=== PATIENT | female | born 1950 | race Caucasian/White ===

== ENCOUNTER 2017-08-19 10:21 | Inpatient (IN) | payer MEDICARE ==
[2017-08-19] MEDS ORDERED: SODIUM CHLORIDE 0.9% 500 ML IV STA (10:52)
[2017-08-19] MEDS ORDERED: DILTIAZEM 5 MG/ML 5 ML VIAL IVP STA (10:52)
[2017-08-19] MEDS ORDERED: SODIUM CHLORIDE 0.9% 1,000 ML IV STA (10:52)
[2017-08-19] MEDS ORDERED: HEPARIN SODIUM,PORCINE 5,000 UNIT/ML 1 ML VIAL IV ONE (10:53)
[2017-08-19] MEDS ORDERED: NITROGLYCERIN SL TABS 0.4 MG TAB SUBLINGUAL PRN (10:53)
[2017-08-19] MEDS ORDERED: HEPARIN SODIUM,PORCINE 5,000 UNIT/ML 1 ML VIAL IV PRN (10:53)
[2017-08-19] MEDS ORDERED: DILTIAZEM 125 MG in SODIUM CHLORIDE 0.9% 100 ML IV ONE (11:00)
[2017-08-19] MEDS ORDERED: HEPARIN SOD,PORK IN 0.45% NACL 25,000 UNIT in 0.45% NACL 1 500ML.BAG IV SCH (11:00)
[2017-08-19 11:08] LABS: Basophils % (A) 0 %; Eosinophils # (A) 0.2 k/uL (0-0.7); Eosinophils % (A) 3 %; HCT 40.8 % (34.0-46.0); HGB 12.7 gm/dL (11.4-16.0); Lymphocytes # (A) 2.3 k/uL (1.0-4.8); Lymphocytes % (A) 34 %; MCHC 31.2 g/dL (31.0-37.0); Mean Platelet Volume 7.8; Monocytes # (A) 0.3 k/uL (0-1.0); Monocytes % (A) 5 %; Neutrophils # (A) 3.9 k/uL (1.3-7.7); Neutrophils % (A) 57 %; Platelet Count 179 k/uL (150-450); RBC 4.39 m/uL (3.80-5.40); RDW 13.5 % (11.5-15.5); WBC 6.8 k/uL (3.8-10.6)
[2017-08-19 11:18] LABS: D-Dimer 0.54 mg/L FEU (<0.60)
[2017-08-19 11:23] LABS: ALT 34 U/L (9-52); AST 33 U/L (14-36); Albumin 4.1 g/dL (3.5-5.0); Alkaline Phosphatase 89 U/L (38-126); Anion Gap 10 mmol/L; Blood Urea Nitrogen 15 mg/dL (7-17); Calcium 10.2 mg/dL (8.4-10.2); Carbon Dioxide 28 mmol/L (22-30); Chloride 104 mmol/L (98-107); Glucose 140 mg/dL (74-99); Magnesium 1.7 mg/dL (1.6-2.3); Phosphorus 3.1 mg/dL (2.5-4.5); Potassium 3.8 mmol/L (3.5-5.1); Sodium 142 mmol/L (137-145); Total Bilirubin 0.9 mg/dL (0.2-1.3)
[2017-08-19 11:26] LABS: INR 1.1 (<1.2); Prothrombin Time 10.9 sec (9.0-12.0)
[2017-08-19 11:31] LABS: Partial Thromboplastin Time 23.6 sec (22.0-30.0)
--- NOTE | 2017-08-19 11:34 | ED ---
General Adult HPI - General Chief complaint: Arrhythmia/Palpitations Stated complaint: Palpitations Time Seen by Provider: 08/19/17 10:34 Source: patient, RN notes reviewed, old records reviewed Mode of arrival: ambulatory Limitations: no limitations - History of Present Illness Initial comments: This is a 59-year-old female the ER for evaluation. Patient presents today for evaluation of elevated heart rate palpitations. Patient denies chest pain or shortness of breath. Patient had outpatient colonoscopy today she did recently go to bowel prep. Patient after the colonoscopy was found to be in A. fib with RVR by staff. Patient herself was admitting some palpitations at that time, patient's transfer to emergency room for evaluation and treatment - Related Data Home Medications Medication Instructions Recorded Confirmed Acetaminophen [Tylenol] 500 mg PO Q4-6H PRN 05/17/15 08/19/17 Hydrochlorothiazide [Hydrodiuril] 12.5 mg PO DAILY 05/17/15 08/19/17 Loratadine [Claritin] 10 mg PO DAILY PRN 05/17/15 08/19/17 Ascorbic Acid [Vitamin C] 500 mg PO DAILY 08/19/17 08/19/17 Aspirin EC [Ecotrin Low Dose] 81 mg PO DAILY 08/19/17 08/19/17 Cholecalciferol (Vitamin D3) 2,000 unit PO DAILY 08/19/17 08/19/17 [Vitamin D3] Levothyroxine Sodium [Synthroid] 75 mcg PO DAILY 08/19/17 08/19/17 Omeprazole [PriLOSEC] 40 mg PO DAILY 08/19/17 08/19/17 Simvastatin [Zocor] 40 mg PO HS 08/19/17 08/19/17 Allergies Allergy/AdvReac Type Severity Reaction Status Date / Time No Known Allergies Allergy Verified 08/19/17 10:33 Review of Systems ROS Statement: Those systems with pertinent positive or pertinent negative responses have been documented in the HPI. ROS Other: All systems not noted in ROS Statement are negative. Past Medical History Past Medical History: Hearing Disorder / Deafness, Hyperlipidemia, Hypertension , Thyroid Disorder Additional Past Medical History / Comment(s): deaf left ear History of Any Multi-Drug Resistant Organisms: None Reported Past Surgical History: Hysterectomy, Tubal Ligation Additional Past Surgical History / Comment(s): Acoustic Neuroma - removal. Past Psychological History: No Psychological Hx Reported Smoking Status: Never smoker Past Alcohol Use History: None Reported Past Drug Use History: Unable to Obtain General Exam Limitations: no limitations General appearance: alert, in no apparent distress, anxious Head exam: Present: atraumatic, normocephalic, normal inspection Eye exam: Present: normal appearance, PERRL, EOMI. Absent: scleral icterus, conjunctival injection, periorbital swelling ENT exam: Present: normal exam, mucous membranes moist Neck exam: Present: normal inspection. Absent: tenderness, meningismus, lymphadenopathy Respiratory exam: Present: normal lung sounds bilaterally. Absent: respiratory distress, wheezes, rales, rhonchi, stridor Cardiovascular Exam: Present: tachycardia, irregular rhythm, normal heart sounds. Absent: systolic murmur, diastolic murmur, rubs, gallop, clicks GI/Abdominal exam: Present: soft, normal bowel sounds. Absent: distended, tenderness, guarding, rebound, rigid Extremities exam: Present: normal inspection, full ROM, normal capillary refill. Absent: tenderness, pedal edema, joint swelling, calf tenderness Back exam: Present: normal inspection Neurological exam: Present: alert, oriented X3, CN II-XII intact Psychiatric exam: Present: normal affect, normal mood Skin exam: Present: warm, dry, intact, normal color. Absent: rash Course Vital Signs 08/19/17 08/19/17 10:22 11:38 Temperature 97.6 F Pulse Rate 150 H 60 Respiratory 18 16 Rate Blood Pressure 157/87 112/59 O2 Sat by Pulse 97 94 L Oximetry - Reevaluation(s) Reevaluation #1: 08/19/17 11:51 Patient has conversion after coughing fits in normal sinus rhythm EKG Findings - EKG Comments: EKG Findings:: EKG shows A. fib with RVR rate 118, QRS 80, QTC 490. Repeat. EKG shows sinus bradycardia rate of 54, NC 162, QRS 82, QTc 440 Medical Decision Making - Medical Decision Making 59 female the ER for evaluation of new onset A. fib with RVR, patient admitted for anticoagulation and rate control - Lab Data Result diagrams: 08/19/17 10:46 08/19/17 10:46 Lab Results 08/19/17 08/19/17 08/19/17 Range/Units 10:46 10:46 10:46 WBC 6.8 (3.8-10.6) k/uL RBC 4.39 (3.80-5.40) m/uL Hgb 12.7 (11.4-16.0) gm/dL Hct 40.8 (34.0-46.0) % MCV 93.0 (80.0-100.0) fL MCH 29.0 (25.0-35.0) pg MCHC 31.2 (31.0-37.0) g/dL RDW 13.5 (11.5-15.5) % Plt Count 179 (150-450) k/uL Neutrophils % 57 % Lymphocytes % 34 % Monocytes % 5 % Eosinophils % 3 % Basophils % 0 % Neutrophils # 3.9 (1.3-7.7) k/uL Lymphocytes # 2.3 (1.0-4.8) k/uL Monocytes # 0.3 (0-1.0) k/uL Eosinophils # 0.2 (0-0.7) k/uL Basophils # 0.0 (0-0.2) k/uL PT 10.9 (9.0-12.0) sec INR 1.1 (<1.2) APTT 23.6 (22.0-30.0) sec D-Dimer 0.54 (<0.60) mg/L FEU Sodium 142 (137-145) mmol/L Potassium 3.8 (3.5-5.1) mmol/L Chloride 104 (98-107) mmol/L Carbon Dioxide 28 (22-30) mmol/L Anion Gap 10 mmol/L BUN 15 (7-17) mg/dL Creatinine 0.83 (0.52-1.04) mg/dL Est GFR (MDRD) Af Amer >60 (>60 ml/min/1.73 sqM) Est GFR (MDRD) Non-Af >60 (>60 ml/min/1.73 sqM) Glucose 140 H (74-99) mg/dL Calcium 10.2 (8.4-10.2) mg/dL Phosphorus 3.1 (2.5-4.5) mg/dL Magnesium 1.7 (1.6-2.3) mg/dL Total Bilirubin 0.9 (0.2-1.3) mg/dL AST 33 (14-36) U/L ALT 34 (9-52) U/L Alkaline Phosphatase 89 (38-126) U/L Total Protein 7.0 (6.3-8.2) g/dL Albumin 4.1 (3.5-5.0) g/dL - Radiology Data Radiology results: image reviewed Disposition Clinical Impression: Atrial fibrillation, Atrial fibrillation with RVR Disposition: ADMITTED IP TO THIS HOSP Condition: Fair Referrals: Marlene Nevarez DO [Primary Care Provider] - 1-2 days
[2017-08-19 11:39] LABS: Creatine Kinase 151 U/L (30-135)
[2017-08-19 11:52] LABS: Creatine Kinase MB 1.9 ng/mL (0.0-2.4); Troponin I <0.012 ng/mL (0.000-0.034)
[2017-08-19] MEDS ORDERED: ACETAMINOPHEN TAB 500 MG TAB PO PRN (14:17)
[2017-08-19] MEDS ORDERED: LORATADINE 10 MG TAB PO PRN (14:17)
--- NOTE | 2017-08-19 14:23 | P.HPIM ---
History of Present Illness H&P Date: 08/19/17 Chief Complaint: Atrial fibrillation with rapid ventricular response This is a 67-year-old female, patient of [facility]. She has a known past medical history of hypertension, hyperlipidemia and hypothyroidism. Patient was at [facility] facility for a routine colonoscopy screening with Dr. Hancock today. After the procedure she went into atrial fibrillation with rapid ventricular response. Patient reports she was given some medicine over at [facility] and then was brought over to [facility]. In the emergency room she was started on IV Cardizem drip and IV heparin. She has converted to sinus rhythm. And metoprolol 25 mg twice a day was started by Dr. Nguyen. Cardiology has been consulted. Patient does report having some heart palpitations. She denies any chest pain, dizziness, nausea or vomiting, shortness of breath. She also denies any bowel movement changes urinary symptoms any fevers chills or sweats. She had taken the GoLYTELY prep yesterday and had tolerated that well with no problems. She's never had atrial fibrillation before. She is still having some loose stools likely from her GoLYTELY prep. Patient reports that her colonoscopy was reported normal to her. She's had a history of colon polyps in the past that were benign. Review of Systems Please refer to HPI otherwise unremarkable Past Medical History Past Medical History: Hearing Disorder / Deafness, Hyperlipidemia, Hypertension , Thyroid Disorder Additional Past Medical History / Comment(s): Deaf left ear, [place] R ear, hypothyroid, 2 ruptured discs/back pain with recent cortisone injections, hayfever, hiatal hernia. History of Any Multi-Drug Resistant Organisms: None Reported Past Surgical History: Hysterectomy, Tubal Ligation Additional Past Surgical History / Comment(s): Acoustic neuroma - removal, cataract removals with lens implants, 08/19/17 colonoscopy. Past Anesthesia/Blood Transfusion Reactions: No Reported Reaction Smoking Status: Never smoker - Past Family History Father Family Medical History: Diabetes Mellitus Mother Family Medical History: Diabetes Mellitus Additional Family Medical History / Comment(s): Mother is . She had heart problems. Medications and Allergies Home Medications Medication Instructions Recorded Confirmed Type Acetaminophen [Tylenol] 500 mg PO Q4-6H PRN 05/17/15 08/19/17 History Hydrochlorothiazide [Hydrodiuril] 12.5 mg PO DAILY 05/17/15 08/19/17 History Loratadine [Claritin] 10 mg PO DAILY PRN 05/17/15 08/19/17 History Ascorbic Acid [Vitamin C] 500 mg PO DAILY 08/19/17 08/19/17 History Aspirin EC [Ecotrin Low Dose] 81 mg PO DAILY 08/19/17 08/19/17 History Cholecalciferol (Vitamin D3) 2,000 unit PO DAILY 08/19/17 08/19/17 History [Vitamin D3] Levothyroxine Sodium [Synthroid] 75 mcg PO DAILY 08/19/17 08/19/17 History Omeprazole [PriLOSEC] 40 mg PO DAILY 08/19/17 08/19/17 History Simvastatin [Zocor] 40 mg PO HS 08/19/17 08/19/17 History Allergies Allergy/AdvReac Type Severity Reaction Status Date / Time No Known Allergies Allergy Verified 08/19/17 10:33 Physical Exam Vitals: Vital Signs Temp Pulse Pulse Resp BP BP Pulse Ox 08/19/17 12:54 60 16 08/19/17 12:27 97.0 F L 60 16 144/68 98 08/19/17 12:00 98.2 F 58 L 16 125/64 97 08/19/17 11:38 60 16 112/59 94 L 08/19/17 10:22 97.6 F 150 H 18 157/87 97 Intake and Output 08/18/17 08/19/17 08/19/17 22:59 06:59 14:59 Other: Weight 78.925 kg Patient Weight 08/20/17 06:59 Weight 78.925 kg Head normocephalic Neck supple Lungs clear to auscultation bilaterally no wheezing or crackles Heart regular rate and rhythm S1-S2, no rub or gallop Abdomen is soft nontender nondistended positive bowel sounds no hepatosplenomegaly Extremities no edema Neuro alert and orientated to 3 Results CBC & Chem 7: 08/19/17 10:46 08/19/17 10:46 Labs: Abnormal Lab Results - Last 24 Hours (Table) 08/19/17 08/19/17 Range/Units 10:46 10:46 Glucose 140 H (74-99) mg/dL Total Creatine Kinase 151 H (30-135) U/L Thrombosis Risk Factor Assmnt - Choose All That Apply Any of the Below Risk Factors Present?: Yes Each Factor Represents 1 point: Obesity (BMI >25) Other Risk Factors: Yes Each Risk Factor Represents 2 Points: Age 61-74 years Other congenital or acquired thrombophilia - If yes, enter type in comment: No Thrombosis Risk Factor Assessment Total Risk Factor Score: 3 Thrombosis Risk Factor Assessment Level: Moderate Risk Assessment and Plan Assessment: 1. New onset of atrial fibrillation with rapid ventricular response: Patient received IV Cardizem and IV heparin in the emergency room. Has converted to normal sinus rhythm. Metoprolol has also been started. Cardiology consulted. EKG had shown atrial fibrillation with rapid ventricular response with a heart rate of 118. TSH level within normal range 2. Hypothyroidism continue Synthroid 3. Essential hypertension: Continue hydrochlorothiazide 4. Hyperlipidemia continue statin GI prophylaxis omeprazole and DVT prophylaxis IV heparin Time with Patient: Greater than 30 (Greater than 50% of the total time spent in counseling and coordination of care.I performed an examination of the patient and discussed their management with the physician Ramp Attendant. I have reviewed the Physician Ramp Attendant's notes and agree with the documented findings and plan of care)
[2017-08-19 17:39] LABS: Creatine Kinase MB 1.5 ng/mL (0.0-2.4); Troponin I 0.016 ng/mL (0.000-0.034)
[2017-08-19] MEDS: METOPROLOL TARTRATE 25 MG TAB PO SCH (20:07)
[2017-08-19] MEDS ORDERED: ATORVASTATIN 20 MG TAB PO SCH (21:00)
[2017-08-19 22:06] VITALS: RESP 16
[2017-08-19 23:45] LABS: Creatine Kinase MB 1.4 ng/mL (0.0-2.4); Troponin I 0.025 ng/mL (0.000-0.034)
[2017-08-20 06:04] LABS: Platelet Count 148 k/uL (150-450)
[2017-08-20 06:19] LABS: Cholesterol 129 mg/dL (<200); HDL Cholesterol 50 mg/dL (40-60); LDL Cholesterol,Calculated 68 mg/dL (0-99); Triglycerides 54 mg/dL (<150)
[2017-08-20] MEDS ORDERED: LEVOTHYROXINE 75 MCG TAB PO SCH (06:30)
[2017-08-20] MEDS ORDERED: PANTOPRAZOLE 40 MG TABLET PO SCH (07:30)
[2017-08-20] MEDS: METOPROLOL TARTRATE 25 MG TAB PO SCH (08:06)
[2017-08-20 08:46] VITALS: TEMP 97.5
[2017-08-20] MEDS ORDERED: ASPIRIN 325 MG TAB PO SCH (09:00)
[2017-08-20] MEDS ORDERED: HYDROCHLOROTHIAZIDE 12.5 MG CAP PO SCH (09:00)
--- NOTE | 2017-08-20 09:32 | P.CRDCN ---
History of Present Illness Consult date: 08/20/17 Requesting physician: Alyssa Sanchez Consult reason: atrial fibrillation Chief complaint: Palpitations History of present illness: This is a pleasant 67-year-old female with history of hypertension, hyperlipidemia, hypothyroidism and states recently she had her dose of Synthroid increased, nonsmoker, she does not drink coffee but states she drinks a significant amount of cola, patient was undergoing a colonoscopy yesterday, routine, post procedure it was noted that she went into atrial fibrillation with a rapid ventricular response, she was treated with some medication and sent to [facility] for admission. Subsequent to her admission here she converted to normal sinus rhythm and continues to be in a normal sinus rhythm this morning. She is on IV heparin and Cardizem drip. I did have a discussion with the patient this morning regarding anticoagulation for stroke prevention, we will look into one of the newer anticoagulants. Past Medical History Past Medical History: Hearing Disorder / Deafness, Hyperlipidemia, Hypertension , Thyroid Disorder Additional Past Medical History / Comment(s): Deaf left ear, [place] R ear, hypothyroid, 2 ruptured discs/back pain with recent cortisone injections, hayfever, hiatal hernia. History of Any Multi-Drug Resistant Organisms: None Reported Past Surgical History: Hysterectomy, Tubal Ligation Additional Past Surgical History / Comment(s): Acoustic neuroma - removal, cataract removals with lens implants, 08/19/17 colonoscopy. Past Anesthesia/Blood Transfusion Reactions: No Reported Reaction Smoking Status: Never smoker - Past Family History Father Family Medical History: Diabetes Mellitus Mother Family Medical History: Diabetes Mellitus Additional Family Medical History / Comment(s): Mother is . She had heart problems. Medications and Allergies Home Medications Medication Instructions Recorded Confirmed Type Acetaminophen [Tylenol] 500 mg PO Q4-6H PRN 05/17/15 08/19/17 History Hydrochlorothiazide [Hydrodiuril] 12.5 mg PO DAILY 05/17/15 08/19/17 History Loratadine [Claritin] 10 mg PO DAILY PRN 05/17/15 08/19/17 History Ascorbic Acid [Vitamin C] 500 mg PO DAILY 08/19/17 08/19/17 History Aspirin EC [Ecotrin Low Dose] 81 mg PO DAILY 08/19/17 08/19/17 History Cholecalciferol (Vitamin D3) 2,000 unit PO DAILY 08/19/17 08/19/17 History [Vitamin D3] Levothyroxine Sodium [Synthroid] 75 mcg PO DAILY 08/19/17 08/19/17 History Omeprazole [PriLOSEC] 40 mg PO DAILY 08/19/17 08/19/17 History Simvastatin [Zocor] 40 mg PO HS 08/19/17 08/19/17 History Allergies Allergy/AdvReac Type Severity Reaction Status Date / Time No Known Allergies Allergy Verified 08/19/17 10:33 Physical Exam Vitals: Vital Signs Temp Pulse Pulse Resp BP BP Pulse Ox 08/20/17 08:00 97.5 F L 63 16 167/80 98 08/20/17 04:00 97.3 F L 60 16 145/73 97 08/20/17 00:00 97.4 F L 67 16 135/68 97 08/19/17 20:08 97 08/19/17 20:00 98.1 F 73 16 129/71 96 08/19/17 16:00 98.4 F 71 14 148/78 97 08/19/17 12:54 60 16 08/19/17 12:27 97.0 F L 60 16 144/68 98 08/19/17 12:00 98.2 F 58 L 16 125/64 97 08/19/17 11:38 60 16 112/59 94 L 08/19/17 10:22 97.6 F 150 H 18 157/87 97 Intake and Output 08/19/17 08/20/17 08/20/17 22:59 06:59 14:59 Intake Total 840 952 Balance 840 952 Intake: IV 40 152 Diltiazem 125 mg In 40 Sodium Chloride 0.9% 100 ml @ 5 MG/HR 5 mls/hr IV .Q24H ONE Rx#:[id number] Heparin Sod,Pork in 0.45% 152 NaCl 25,000 unit In 0.45 % NaCl 1 500ml.bag @ 12 UNITS/KG/HR 18.94 mls/hr IV .Q24H TIAGO Rx#: [id number] Intake, IV Titration 800 800 Amount Sodium Chloride 0.9% 1, 800 800 000 ml @ 100 mls/hr IV . Q10H STA Rx#:[id number] Other: Voiding Method Toilet Toilet # Voids 2 1 Weight 79 kg PHYSICAL EXAMINATION: HEENT: Head is atraumatic, normocephalic. Pupils equal, round. Neck is supple. There is no elevated jugular venous pressure. HEART EXAMINATION: Heart S1 and S2 systolic murmur is heard CHEST EXAMINATION: Lungs are clear to auscultation and precussion. No chest wall tenderness is noted on palpation or with deep breathing. ABDOMEN: Soft, nontender. Bowel sounds are heard. No organomegaly noted. EXTREMITIES: 2+ peripheral pulses with no evidence of peripheral edema and no calf tenderness noted. NEUROLOGIC patient is awake, alert and oriented -3. . Results 08/20/17 05:25 08/19/17 10:46 Cardiac Enzymes 08/19/17 08/19/17 08/19/17 Range/Units 10:46 10:46 16:51 AST 33 (14-36) U/L CK-MB (CK-2) 1.9 1.5 (0.0-2.4) ng/mL Troponin I <0.012 0.016 (0.000-0.034) ng/mL 08/19/17 Range/Units 22:55 AST (14-36) U/L CK-MB (CK-2) 1.4 (0.0-2.4) ng/mL Troponin I 0.025 (0.000-0.034) ng/mL Coagulation 08/19/17 08/19/17 08/20/17 Range/Units 10:46 16:51 05:25 PT 10.9 (9.0-12.0) sec APTT 23.6 62.3 H 47.1 H (22.0-30.0) sec Lipids 08/20/17 Range/Units 05:25 Triglycerides 54 (<150) mg/dL Cholesterol 129 (<200) mg/dL HDL Cholesterol 50 (40-60) mg/dL CBC 08/19/17 08/20/17 Range/Units 10:46 05:25 WBC 6.8 (3.8-10.6) k/uL RBC 4.39 (3.80-5.40) m/uL Hgb 12.7 (11.4-16.0) gm/dL Hct 40.8 (34.0-46.0) % Plt Count 179 148 L (150-450) k/uL Comprehensive Metabolic Panel 08/19/17 Range/Units 10:46 Sodium 142 (137-145) mmol/L Potassium 3.8 (3.5-5.1) mmol/L Chloride 104 (98-107) mmol/L Carbon Dioxide 28 (22-30) mmol/L BUN 15 (7-17) mg/dL Creatinine 0.83 (0.52-1.04) mg/dL Glucose 140 H (74-99) mg/dL Calcium 10.2 (8.4-10.2) mg/dL AST 33 (14-36) U/L ALT 34 (9-52) U/L Alkaline Phosphatase 89 (38-126) U/L Total Protein 7.0 (6.3-8.2) g/dL Albumin 4.1 (3.5-5.0) g/dL Current Medications Generic Name Dose Route Start Last Admin Trade Name Freq PRN Reason Stop Dose Admin Acetaminophen 500 mg 08/19/17 14:17 08/19/17 17:09 Tylenol Tab PO 500 mg Q4H PRN Administration Pain Ascorbic Acid 500 mg 08/20/17 12:00 Vitamin C PO 1200 [facility] Aspirin 81 mg 08/21/17 09:00 Aspirin PO DAILY [facility] Atorvastatin Calcium 20 mg 08/19/17 21:00 08/19/17 20:07 Lipitor PO 20 mg HS [facility] Administration Cholecalciferol 2,000 unit 08/20/17 12:00 Vitamin D3 PO 1200 [facility] Heparin Sodium (Porcine) 0 unit 08/19/17 10:53 Heparin IV Q6HR PRN Low PTT Protocol Hydrochlorothiazide 12.5 mg 08/20/17 09:00 08/20/17 08:06 Hydrodiuril PO 12.5 mg DAILY [facility] Administration Heparin Sodium/Sodium Chloride 500 mls @ 18.94 mls/hr 08/19/17 11:00 11:18 25,000 unit/ Sodium Chloride IV 12 units/kg/hr .Q24H [facility] 18.94 mls/hr Protocol Administration 12 UNITS/KG/HR Levothyroxine Sodium 75 mcg 08/20/17 06:30 08/20/17 07:01 Synthroid PO 75 mcg 0630 [facility] Administration Loratadine 10 mg 08/19/17 14:17 Claritin PO DAILY PRN Allergy Symptoms Metoprolol Tartrate 25 mg 08/19/17 21:00 08/20/17 08:06 Lopressor PO 25 mg BID [facility] Administration Nitroglycerin 0.4 mg 08/19/17 10:53 Nitrostat SUBLINGUAL Q5M PRN Chest Pain Pantoprazole Sodium 40 mg 08/20/17 07:30 08/20/17 07:01 Protonix PO 40 mg [id number] [facility]AGO Administration Intake and Output 08/19/17 08/20/17 08/20/17 22:59 06:59 14:59 Intake Total 840 952 Balance 840 952 Intake: IV 40 152 Diltiazem 125 mg In 40 Sodium Chloride 0.9% 100 ml @ 5 MG/HR 5 mls/hr IV .Q24H ONE Rx#:[id number] Heparin Sod,Pork in 0.45% 152 NaCl 25,000 unit In 0.45 % NaCl 1 500ml.bag @ 12 UNITS/KG/HR 18.94 mls/hr IV .Q24H [facility] Rx#: [id number] Intake, IV Titration 800 800 Amount Sodium Chloride 0.9% 1, 800 800 000 ml @ 100 mls/hr IV . Q10H STA Rx#:[id number] Other: Voiding Method Toilet Toilet # Voids 2 1 Weight 79 kg 08/20/17 05:25 08/19/17 10:46 EKG Interpretations (text) Initial EKG shows atrial fibrillation with a rapid ventricular response, subsequent EKG shows normal sinus rhythm. Assessment and Plan Plan: Assessment and plan #1 atrial fibrillation with rapid ventricular response, appears to be of new onset, paroxysmal. Currently in normal sinus rhythm #2 hypertension #3 hyperlipidemia #4 hypothyroidism Plan We will obtain an echocardiogram with Doppler study along with free T4 and TSH level. Discontinue IV Cardizem. Decrease aspirin to 81 mg daily, we will also look into coverage for one of the newer anticoagulants. 10 you Lopressor 25 mg one tablet by mouth twice a day. Further recommendations to follow. DNP note has been reviewed, I agree with a documented findings and plan of care. Patient was seen and examined.
[2017-08-20] MEDS ORDERED: APIXABAN 5 MG TAB PO SCH (09:45)
[2017-08-20 10:02] LABS: T4, Free (Free Thyroxine) 1.2 ng/dL (0.78-2.19)
[2017-08-20 11:19] VITALS: BP 159/77; PULSE 61
[2017-08-20] MEDS ORDERED: ASCORBIC ACID 500 MG TAB PO SCH (12:00)
[2017-08-20] MEDS ORDERED: CHOLECALCIFEROL 1,000 UNIT TAB PO SCH (12:00)
--- NOTE | 2017-08-20 13:17 | ECHOF ---
Referral Reason:afib MEASUREMENTS -------- HEIGHT: 162.6 cm WEIGHT: 78.9 kg BP: 130/60 RVIDd: 2.9 cm (< 3.3) IVSd: 1.3 cm (0.6 - 1.1) LVIDd: 4.1 cm (3.9 - 5.3) LVPWd: 1.2 cm (0.6 - 1.1) IVSs: 1.6 cm LVIDs: 2.9 cm LVPWs: 1.3 cm LAESV Index (A-L): 37.42 ml/m Ao Diam: 3.0 cm (2.0 - 3.7) AV Cusp: 1.1 cm (1.5 - 2.6) LA Diam: 3.3 cm (2.7 - 3.8) MV EXCURSION: 10.412 mm (> 18.000) MV EF SLOPE: 53 mm/s (70 - 150) EPSS: 0.5 cm MV E Travis: 1.04 m/s MV DecT: 257 ms MV A Travis: 0.97 m/s MV E/A Ratio: 1.07 RAP: 5.00 mmHg RVSP: 33.08 mmHg FINDINGS -------- Sinus rhythm with extra systolic beats. This was a technically adequate study. The left ventricular size is normal. There is mild concentric left ventricular hypertrophy. Overa ll left ventricular systolic function is low-normal with, an EF between 50 - 55 %. The right ventricle is normal in size. LA is moderately dilated 34-39 ml/m2 The right atrial size is normal. There is mild aortic valve sclerosis. There is no evidence of aortic regurgitation. The mitral valve leaflets are mildly thickened. Moderate mitral regurgitation is present. Moderate tricuspid regurgitation present. There is no evidence of pulmonary hypertension. The rig ht ventricular systolic pressure, as measured by Doppler, is 33.08mmHg. Trace/mild (physiologic) pulmonic regurgitation. The aortic root size is normal. There is no pericardial effusion. CONCLUSIONS -------- 1. Sinus rhythm with extra systolic beats. 2. This was a technically adequate study. 3. The left ventricular size is normal. 4. There is mild concentric left ventricular hypertrophy. 5. Overall left ventricular systolic function is low-normal with, an EF between 50 - 55 %. 6. LA is moderately dilated 34-39 ml/m2 7. There is mild aortic valve sclerosis. 8. The mitral valve leaflets are mildly thickened. 9. Moderate mitral regurgitation is present. 10. Moderate tricuspid regurgitation present. 11. There is no evidence of pulmonary hypertension. 12. Trace/mild (physiologic) pulmonic regurgitation. 13. The aortic root size is normal. 14. There is no pericardial effusion. AUTOMOTIVE TEACHER: Lolita Harmon RDCS
--- NOTE | 2017-08-20 13:53 | P.DS ---
Providers Date of admission: 08/19/17 10:53 Expected date of discharge: 08/20/17 Attending physician: Alyssa Sanchez Consults: 08/19/17 10:53 Consult Physician Urgent Consulting Provider: Kashif Layton Consult Reason/Comments: afib Do you want consulting provider notified?: Yes Primary care physician: Marlene [facility] Course: Diagnoses on discharge: 1. New onset of atrial fibrillation with rapid ventricular response: Patient received IV Cardizem and IV heparin in the emergency room. Has converted to normal sinus rhythm. Metoprolol has also been started. Cardiology consulted. EKG had shown atrial fibrillation with rapid ventricular response with a heart rate of 118. TSH level within normal range 2. Hypothyroidism continue Synthroid 3. Essential hypertension: Continue hydrochlorothiazide 4. Hyperlipidemia continue statin Hospital course: This is a 67-year-old female, patient of [facility]. She has a known past medical history of hypertension, hyperlipidemia and hypothyroidism. Patient was at [facility] facility for a routine colonoscopy screening with Dr. Hancock today. After the procedure she went into atrial fibrillation with rapid ventricular response. Patient reports she was given some medicine over at [facility] and then was brought over to [facility]. In the emergency room she was started on IV Cardizem drip and IV heparin. She has converted to sinus rhythm. And metoprolol 25 mg twice a day was started by Dr. Nguyen. Cardiology has been consulted. Patient does report having some heart palpitations. She denies any chest pain, dizziness, nausea or vomiting, shortness of breath. She also denies any bowel movement changes urinary symptoms any fevers chills or sweats. Patient was admitted to telemetry floor initially she was in atrial fibrillation however she regained normal sinus rhythm she was evaluated by cardiology, IV Cardizem was discontinued and patient was started on metoprolol 25 mg twice daily patient continued to be in normal sinus rhythm she was cleared by cardiology for discharge she was also started on Eliquis 5 mg by mouth twice daily this was not covered by her insurance and her monthly payment would be in excess of $400 patient was given a coupon for 1 month free medication she will also follow-up with cardiology for possible samples or preauthorization for anticoagulation medication Patient Condition at Discharge: Fair Plan - Discharge Summary Discharge Rx Participant: No New Discharge Prescriptions: New Apixaban [Eliquis] 5 mg PO BID tab Metoprolol Tartrate [Lopressor] 25 mg PO BID tab Nitroglycerin Sl Tabs [Nitrostat] 0.4 mg SUBLINGUAL Q5M PRN tab PRN Reason: Chest Pain Continue Loratadine [Claritin] 10 mg PO DAILY PRN PRN Reason: Allergy Symptoms Acetaminophen [Tylenol] 500 mg PO Q4-6H PRN PRN Reason: Pain Hydrochlorothiazide [Hydrodiuril] 12.5 mg PO DAILY Ascorbic Acid [Vitamin C] 500 mg PO DAILY Cholecalciferol (Vitamin D3) [Vitamin D3] 2,000 unit PO DAILY Simvastatin [Zocor] 40 mg PO HS Levothyroxine Sodium [Synthroid] 75 mcg PO DAILY Omeprazole [PriLOSEC] 40 mg PO DAILY Aspirin EC [Ecotrin Low Dose] 81 mg PO DAILY Discharge Medication List Acetaminophen [Tylenol] 500 mg PO Q4-6H PRN 05/17/15 [History] Hydrochlorothiazide [Hydrodiuril] 12.5 mg PO DAILY 05/17/15 [History] Loratadine [Claritin] 10 mg PO DAILY PRN 05/17/15 [History] Ascorbic Acid [Vitamin C] 500 mg PO DAILY 08/19/17 [History] Aspirin EC [Ecotrin Low Dose] 81 mg PO DAILY 08/19/17 [History] Cholecalciferol (Vitamin D3) [Vitamin D3] 2,000 unit PO DAILY 08/19/17 [History] Levothyroxine Sodium [Synthroid] 75 mcg PO DAILY 08/19/17 [History] Omeprazole [PriLOSEC] 40 mg PO DAILY 08/19/17 [History] Simvastatin [Zocor] 40 mg PO HS 08/19/17 [History] Apixaban [Eliquis] 5 mg PO BID tab 08/20/17 [Rx] Metoprolol Tartrate [Lopressor] 25 mg PO BID tab 08/20/17 [Rx] Nitroglycerin Sl Tabs [Nitrostat] 0.4 mg SUBLINGUAL Q5M PRN tab 08/20/17 [Rx] Follow up Appointment(s)/Referral(s): Dea Ballard MD [STAFF PHYSICIAN] - 1 Week (Office to call patient with follow up appointment.) Marlene Nevarez DO [Primary Care Provider] - 1-2 days Patient Instructions/Handouts: A-fib (Atrial Fibrillation) (DC), Safe Use of Anticoagulants (DC) Activity/Diet/Wound Care/Special Instructions: Emi script filled in [facility] - free coupon applied. Call mEi at for benefit investigation/financial assistance with drugy May obtain samples from [facility]
[2017-08-21] MEDS ORDERED: ASPIRIN 81 MG PO SCH (09:00)
== END 2017-08-20 15:30 | disposition home or self-care (01) | DRG 310 ==
LOC: EC 10:21 → 6SEL 10:53
PROVIDERS: ADMIT Internal Medicine; ATTEND Internal Medicine
DX: I48.0 Paroxysmal atrial fibrillation (principal); E03.9 Hypothyroidism, unspecified; E78.5 Hyperlipidemia, unspecified; I10 Essential (primary) hypertension; M54.9 Dorsalgia, unspecified; K44.9 Diaphragmatic hernia without obstruction or gangrene; H91.93 Unspecified hearing loss, bilateral; Z79.899 Other long term (current) drug therapy; Z79.82 Long term (current) use of aspirin; Z90.710 Acquired absence of both cervix and uterus
CPT/HCPCS: 36415; 80053; 80061; 82550; 82553; 83735; 84100; 84439; 84443; 84484; 85025; 85049; 85379; 85610; 85730; 93005; 93306; 94760; 96365; 96375; 96376; 99285

== ENCOUNTER → 2019-06-08 | Outpatient (CLI) | payer MEDICARE ==
--- NOTE | 2019-06-09 10:15 | MM ---
Reason for exam: screening (asymptomatic). Last mammogram was performed 6 years and 1 month ago. History: Patient is postmenopausal. Took estrogen for 10 years. Physical Findings: A clinical breast exam by your physician is recommended on an annual basis and results should be correlated with mammographic findings. MG 3D Screening Mammo W/Cad Bilateral CC and MLO view(s) were taken. Prior study comparison: May 17, 2013, left diagnostic mammogram w/CAD. December 04, 2012, [facility] DIGITAL LEFT BREAST MAMMOGRAM w/CAD. The breast tissue is heterogeneously dense. This may lower the sensitivity of mammography. There is no discrete abnormality. No significant changes when compared with prior studies. ASSESSMENT: Negative, BI-RAD 1 RECOMMENDATION: Routine screening mammogram of both breasts in 1 year.
== END | disposition home or self-care (01) ==
LOC: RADMAMWWP 07:22
PROVIDERS: ATTEND Family Medicine
DX: Z12.31 Encounter for screening mammogram for malignant neoplasm of breast (principal)
CPT/HCPCS: 77063; 77067

== ENCOUNTER 2019-08-18 09:27 | Emergency (ER) | payer MEDICARE ==
[2019-08-18] MEDS ORDERED: NITROGLYCERIN SL TABS 0.4 MG TAB SUBLINGUAL STA ×3 (09:59)
[2019-08-18] MEDS ORDERED: ASPIRIN 81 MG PO STA (09:59)
--- NOTE | 2019-08-18 10:03 | ED ---
General Adult HPI - General Chief complaint: Chest Pain Stated complaint: chest/breast pain Time Seen by Provider: 08/18/19 09:44 Source: patient, RN notes reviewed Mode of arrival: ambulatory Limitations: no limitations - History of Present Illness Initial comments: Patient is a pleasant 69-year-old female presenting to the emergency Department with chest discomfort. Onset of symptoms was several months ago, in May. Symptoms or there nearly every day. Patient does sometimes notice discomfort with pressure pushing on or moving. No associated dyspnea, nausea, or diaphoresis. Patient has seen several doctors for this including her primary care physician, agricultural technician, and bottom buffer. Patient did have a recent negative stress test. Symptoms are mild rated 3/10. Discomfort feels dull. No radiation. - Related Data Home Medications Medication Instructions Recorded Confirmed Acetaminophen [Tylenol] 500 mg PO Q4-6H PRN 05/17/15 08/19/17 Hydrochlorothiazide [Hydrodiuril] 12.5 mg PO DAILY 05/17/15 08/19/17 Loratadine [Claritin] 10 mg PO DAILY PRN 05/17/15 08/19/17 Ascorbic Acid [Vitamin C] 500 mg PO DAILY 08/19/17 08/19/17 Aspirin EC [Ecotrin Low Dose] 81 mg PO DAILY 08/19/17 08/19/17 Cholecalciferol (Vitamin D3) 2,000 unit PO DAILY 08/19/17 08/19/17 [Vitamin D3] Levothyroxine Sodium [Synthroid] 75 mcg PO DAILY 08/19/17 08/19/17 Omeprazole [PriLOSEC] 40 mg PO DAILY 08/19/17 08/19/17 Simvastatin [Zocor] 40 mg PO HS 08/19/17 08/19/17 Previous Rx's Medication Instructions Recorded Apixaban [Eliquis] 5 mg PO BID tab 08/20/17 Metoprolol Tartrate [Lopressor] 25 mg PO BID tab 08/20/17 Nitroglycerin Sl Tabs [Nitrostat] 0.4 mg SUBLINGUAL Q5M PRN tab 08/20/17 Allergies Allergy/AdvReac Type Severity Reaction Status Date / Time No Known Allergies Allergy Verified 08/18/19 09:31 Review of Systems ROS Statement: Those systems with pertinent positive or pertinent negative responses have been documented in the HPI. ROS Other: All systems not noted in ROS Statement are negative. Constitutional: Denies: fever Eyes: Denies: eye pain ENT: Denies: ear pain Respiratory: Denies: cough, dyspnea Cardiovascular: Reports: as per HPI Endocrine: Denies: fatigue Gastrointestinal: Denies: abdominal pain Genitourinary: Denies: dysuria Musculoskeletal: Denies: back pain Skin: Denies: rash Neurological: Denies: weakness Past Medical History Past Medical History: Hearing Disorder / Deafness, Hyperlipidemia, Hypertension, Thyroid Disorder Additional Past Medical History / Comment(s): Deaf left ear, OUZINKIE R ear, hypothyroid, 2 ruptured discs/back pain with recent cortisone injections, hayfe neisha, hiatal hernia. History of Any Multi-Drug Resistant Organisms: None Reported Past Surgical History: Hysterectomy, Tubal Ligation Additional Past Surgical History / Comment(s): Acoustic neuroma - removal, cataract removals with lens implants, 08/19/17 colonoscopy. Past Anesthesia/Blood Transfusion Reactions: No Reported Reaction Past Psychological History: No Psychological Hx Reported Smoking Status: Never smoker - Past Family History Father Family Medical History: Diabetes Mellitus Mother Family Medical History: Diabetes Mellitus Additional Family Medical History / Comment(s): Mother is . She had heart problems. General Exam Limitations: no limitations General appearance: alert, in no apparent distress Head exam: Present: normocephalic Eye exam: Present: normal appearance, PERRL ENT exam: Present: normal oropharynx Neck exam: Present: normal inspection Respiratory exam: Present: normal lung sounds bilaterally. Absent: chest wall tenderness Cardiovascular Exam: Present: regular rate, normal rhythm Expanded Peripheral pulses: 2+: Radial (R), Radial (L), Dorsalis Pedis (R), Dorsalis Pedis (L) GI/Abdominal exam: Present: soft. Absent: tenderness Extremities exam: Present: normal inspection. Absent: pedal edema, calf tenderness Neurological exam: Present: alert Psychiatric exam: Present: normal affect, normal mood Skin exam: Present: normal color Course Vital Signs 08/18/19 08/18/19 09:28 10:51 Temperature 97.9 F Pulse Rate 81 54 L Respiratory 18 18 Rate Blood Pressure 207/81 149/87 O2 Sat by Pulse 98 98 Oximetry EKG Findings - EKG Comments: EKG Findings:: Sinus bradycardia with sinus arrhythmia. Rate 55. AL 194. QRS 82. QT 440. QTc 420. Normal axis. Normal QRS. No acute ST change. Medical Decision Making - Medical Decision Making Patient reevaluated and resting comfortably in bed. Patient updated on results and need for follow-up. - Lab Data Result diagrams: 08/18/19 09:58 08/18/19 09:58 Lab Results 08/18/19 08/18/19 08/18/19 Range/Units 09:58 09:58 09:58 WBC 6.8 (3.8-10.6) k/uL RBC 4.74 (3.80-5.40) m/uL Hgb 13.7 (11.4-16.0) gm/dL Hct 42.9 (34.0-46.0) % MCV 90.5 (80.0-100.0) fL MCH 28.9 (25.0-35.0) pg MCHC 32.0 (31.0-37.0) g/dL RDW 13.2 (11.5-15.5) % Plt Count 194 (150-450) k/uL Neutrophils % 50 % Lymphocytes % 36 % Monocytes % 6 % Eosinophils % 4 % Basophils % 1 % Neutrophils # 3.4 (1.3-7.7) k/uL Lymphocytes # 2.4 (1.0-4.8) k/uL Monocytes # 0.4 (0-1.0) k/uL Eosinophils # 0.3 (0-0.7) k/uL Basophils # 0.1 (0-0.2) k/uL PT 10.2 (9.0-12.0) sec INR 1.0 (<1.2) APTT 25.5 (22.0-30.0) sec D-Dimer 0.34 (<0.60) mg/L FEU Sodium 137 (137-145) mmol/L Potassium 4.2 (3.5-5.1) mmol/L Chloride 98 (98-107) mmol/L Carbon Dioxide 31 H (22-30) mmol/L Anion Gap 8 mmol/L BUN 14 (7-17) mg/dL Creatinine 0.97 (0.52-1.04) mg/dL Est GFR (CKD-EPI)AfAm 69 (>60 ml/min/1.73 sqM) Est GFR (CKD-EPI)NonAf 60 (>60 ml/min/1.73 sqM) Glucose 97 (74-99) mg/dL Calcium 10.1 (8.4-10.2) mg/dL Magnesium 2.1 (1.6-2.3) mg/dL Total Bilirubin 0.5 (0.2-1.3) mg/dL AST 37 H (14-36) U/L ALT 24 (4-34) U/L Alkaline Phosphatase 104 (38-126) U/L Troponin I (0.000-0.034) ng/mL Total Protein 7.5 (6.3-8.2) g/dL Albumin 4.3 (3.5-5.0) g/dL 08/18/19 Range/Units 09:58 WBC (3.8-10.6) k/uL RBC (3.80-5.40) m/uL Hgb (11.4-16.0) gm/dL Hct (34.0-46.0) % MCV (80.0-100.0) fL MCH (25.0-35.0) pg MCHC (31.0-37.0) g/dL RDW (11.5-15.5) % Plt Count (150-450) k/uL Neutrophils % % Lymphocytes % % Monocytes % % Eosinophils % % Basophils % % Neutrophils # (1.3-7.7) k/uL Lymphocytes # (1.0-4.8) k/uL Monocytes # (0-1.0) k/uL Eosinophils # (0-0.7) k/uL Basophils # (0-0.2) k/uL PT (9.0-12.0) sec INR (<1.2) APTT (22.0-30.0) sec D-Dimer (<0.60) mg/L FEU Sodium (137-145) mmol/L Potassium (3.5-5.1) mmol/L Chloride (98-107) mmol/L Carbon Dioxide (22-30) mmol/L Anion Gap mmol/L BUN (7-17) mg/dL Creatinine (0.52-1.04) mg/dL Est GFR (CKD-EPI)AfAm (>60 ml/min/1.73 sqM) Est GFR (CKD-EPI)NonAf (>60 ml/min/1.73 sqM) Glucose (74-99) mg/dL Calcium (8.4-10.2) mg/dL Magnesium (1.6-2.3) mg/dL Total Bilirubin (0.2-1.3) mg/dL AST (14-36) U/L ALT (4-34) U/L Alkaline Phosphatase (38-126) U/L Troponin I <0.012 (0.000-0.034) ng/mL Total Protein (6.3-8.2) g/dL Albumin (3.5-5.0) g/dL - Radiology Data Radiology results: image reviewed (Chest x-ray shows no acute process) Disposition Clinical Impression: Chest wall pain Disposition: HOME SELF-CARE Condition: Stable Instructions (If sedation given, give patient instructions): Chest Pain (ED) Additional Instructions: Please follow-up with primary care physician in the next couple days for recheck. Please follow-up with other specialists, number provided. Return for increased pain, difficulty breathing, worsening or change in symptoms or other concerns. Is patient prescribed a controlled substance at d/c from ED?: No Referrals: Josh Alfred MD [Primary Care Provider] - 1-2 days Dea Ballard MD [STAFF PHYSICIAN] - 1-2 days Bella Joseph MD [STAFF PHYSICIAN] - 1-2 days Zarina Lopez MD [STAFF PHYSICIAN] - 1-2 days Time of Disposition: 12:00
--- NOTE | 2019-08-18 10:38 | XR ---
EXAMINATION TYPE: XR chest 2V DATE OF EXAM: 08/18/2019 COMPARISON: NONE TECHNIQUE: PA and lateral views submitted. HISTORY: Chest pain FINDINGS: The lungs are clear and there is no pneumothorax, pleural effusion, or focal pneumonia. Hypertrophi c change of the vertebral column. No overt failure. Atherosclerotic change aorta. Arthropathy of the shoulders. IMPRESSION: 1. No acute process.
[2019-08-18 10:51] VITALS: PULSE 54
[2019-08-18 11:02] LABS: Basophils # (A) 0.1 k/uL (0-0.2); Basophils % (A) 1 %; Eosinophils # (A) 0.3 k/uL (0-0.7); Eosinophils % (A) 4 %; HCT 42.9 % (34.0-46.0); HGB 13.7 gm/dL (11.4-16.0); Lymphocytes # (A) 2.4 k/uL (1.0-4.8); Lymphocytes % (A) 36 %; MCH 28.9 pg (25.0-35.0); MCV 90.5 fL (80.0-100.0); Mean Platelet Volume 8.2; Monocytes # (A) 0.4 k/uL (0-1.0); Monocytes % (A) 6 %; Neutrophils # (A) 3.4 k/uL (1.3-7.7); Neutrophils % (A) 50 %; Platelet Count 194 k/uL (150-450); RBC 4.74 m/uL (3.80-5.40); RDW 13.2 % (11.5-15.5); WBC 6.8 k/uL (3.8-10.6)
[2019-08-18 11:08] LABS: Albumin 4.3 g/dL (3.5-5.0); Calcium 10.1 mg/dL (8.4-10.2); Magnesium 2.1 mg/dL (1.6-2.3); Potassium 4.2 mmol/L (3.5-5.1); Total Bilirubin 0.5 mg/dL (0.2-1.3); Total Protein 7.5 g/dL (6.3-8.2)
[2019-08-18 11:33] LABS: D-Dimer 0.34 mg/L FEU (<0.60); Partial Thromboplastin Time 25.5 sec (22.0-30.0); Prothrombin Time 10.2 sec (9.0-12.0)
[2019-08-18 12:14] VITALS: BP 172/74; RESP 19; TEMP 98.7
== END 2019-08-18 12:14 | disposition home or self-care (01) ==
LOC: EC 09:27
DX: R07.89 Other chest pain (principal); E78.5 Hyperlipidemia, unspecified; I10 Essential (primary) hypertension; E03.9 Hypothyroidism, unspecified; H91.93 Unspecified hearing loss, bilateral; Z79.82 Long term (current) use of aspirin; Z79.890 Hormone replacement therapy; Z79.899 Other long term (current) drug therapy
CPT/HCPCS: 36415; 71046; 80053; 83735; 84484; 85025; 85379; 85610; 85730; 93005; 99285

== ENCOUNTER 2021-05-04 11:38 | Emergency (ER) | payer MEDICARE ==
[2021-05-04 11:47] LABS: Glucose,Whole Blood 103 mg/dL (75-99)
[2021-05-04] MEDS ORDERED: SODIUM CHLORIDE 0.9% 500 ML 500 ML IV ONE (11:49)
[2021-05-04 11:53] VITALS: TEMP 97.8
--- NOTE | 2021-05-04 12:05 | ED ---
General Adult HPI - General Stated complaint: Seizure,Altered Time Seen by Provider: 05/04/21 12:00 Source: patient, RN notes reviewed, old records reviewed - History of Present Illness Initial comments: This is a 71-year-old female who was altered this morning. According to the family she was sitting in the living room on a chair with her pants out of her ankles is if she was going to go to bathroom but she was in the living room chair. EMS was contacted because she was not acting normal and when EMS got there she was able to answer questions but then shortly thereafter she had a 20- 30 seconds seizure. Patient also states that for the last 2-3 months she's complaining of a frontal headache. Patient initially was unable to answer any questions but now she is alert and oriented 3 and has no complaints other than her ALLERGIES were acting up and she's had a headache in the frontal region. Patient denies any recent fever chills per patient denies any chest pain difficulty breathing. Patient denies any abdominal pain patient denies nausea vomiting diarrhea. - Related Data Home Medications Medication Instructions Recorded Confirmed Acetaminophen [Tylenol] 500 mg PO Q4-6H PRN 05/17/15 05/04/21 hydroCHLOROthiazide [Hydrodiuril] 12.5 mg PO DAILY 05/17/15 05/04/21 Cholecalciferol (Vitamin D3) 2,000 unit PO DAILY 08/19/17 05/04/21 [Vitamin D3] Omeprazole [PriLOSEC] 40 mg PO DAILY 08/19/17 05/04/21 Albuterol Inhaler [Ventolin Hfa 1 puff INHALATION RT-Q6H PRN 05/04/21 05/04/21 Inhaler] Atorvastatin [Lipitor] 40 mg PO HS 05/04/21 05/04/21 Budesonide [Pulmicort Flexhaler] 1 puff INHALATION RT-BID 05/04/21 05/04/21 Calcium Carbonate [Calcium] 600 mg PO DAILY 05/04/21 05/04/21 Levothyroxine Sodium [Synthroid] 112 mcg PO DAILY 05/04/21 05/04/21 Magnesium 250 mg PO DAILY 05/04/21 05/04/21 Metoprolol Tartrate [Lopressor] 12.5 mg PO BID 05/04/21 05/04/21 Previous Rx's Medication Instructions Recorded Apixaban [Eliquis] 5 mg PO BID tab 08/20/17 Nitroglycerin Sl Tabs [Nitrostat] 0.4 mg SUBLINGUAL Q5M PRN tab 08/20/17 Allergies Allergy/AdvReac Type Severity Reaction Status Date / Time No Known Allergies Allergy Verified 05/04/21 13:11 Review of Systems ROS Statement: Those systems with pertinent positive or pertinent negative responses have been documented in the HPI. ROS Other: All systems not noted in ROS Statement are negative. Past Medical History Past Medical History: Hearing Disorder / Deafness, Hyperlipidemia, Hypertension, Thyroid Disorder Additional Past Medical History / Comment(s): Deaf left ear, HUGHES R ear, hypothy roid, 2 ruptured discs/back pain with recent cortisone injections, hayfever, hiatal hernia. History of Any Multi-Drug Resistant Organisms: None Reported Past Surgical History: Hysterectomy, Tubal Ligation Additional Past Surgical History / Comment(s): Acoustic neuroma - removal, cataract removals with lens implants, 08/19/17 colonoscopy. Past Anesthesia/Blood Transfusion Reactions: No Reported Reaction Past Psychological History: No Psychological Hx Reported - Past Family History Father Family Medical History: Diabetes Mellitus Mother Family Medical History: Diabetes Mellitus Additional Family Medical History / Comment(s): Mother is . She had heart problems. General Exam - General Exam Comments Initial Comments: GENERAL: Patient is well-developed and well-nourished. Patient withdraws to pain. The moist and the room to more awake she calms. ENT: Neck is soft and supple. No significant lymphadenopathy is noted. Oropharynx is clear. Moist mucous membranes. Neck has full range of motion without eliciting any pain. EYES: The sclera were anicteric and conjunctiva were pink and moist. Extraocular movements were intact and pupils were equal round and reactive to light. Eyelids were unremarkable. PULMONARY: Unlabored respirations. Good breath sounds bilaterally. No audible rales rhonchi or wheezing was noted. CARDIOVASCULAR: There is a regular rate and rhythm without any murmurs gallops or rubs. ABDOMEN: Soft and nontender with normal bowel sounds. No palpable organomegaly was noted. There is no palpable pulsatile mass. SKIN: Skin is clear with no lesions or rashes and otherwise unremarkable. NEUROLOGIC: Patient is alert initially only responding to pain but was given 5 of Versed and may also be postictal. On reexamination patient was alert and oriented 3 PSYCHIATRIC: Normal psychiatric evaluation. Course Vital Signs 05/04/21 05/04/21 05/04/21 11:48 12:30 13:00 Temperature 97.8 F Pulse Rate 85 71 70 Respiratory 22 18 18 Rate Blood Pressure 151/81 160/80 166/100 O2 Sat by Pulse 96 98 98 Oximetry 05/04/21 14:37 Temperature Pulse Rate 74 Respiratory 18 Rate Blood Pressure 170/82 O2 Sat by Pulse 100 Oximetry Medical Decision Making - Medical Decision Making EKG shows normal sinus rhythm at 86 bpm GA interval is 168 QRSs 80 QT interval is 46 QTC is 45. Patient's EKG shows no ST segment elevation or depression. Initially patient was only responsive to painful stimuli and she was a ppropriately but shortly thereafter she started to talk and became alert and oriented times one and eventually became alert and oriented 3 currently she has no complaints. Patient received Decadron and Keppra Patient computed tomography scan of the brain shows a right frontal mass with edema I spoke with the physician at [facility] Dr. Yarbrough and they accepted the transfer of the patient. - Lab Data Result diagrams: 05/04/21 11:57 05/04/21 11:57 Lab Results 05/04/21 05/04/21 05/04/21 Range/Units 11:45 11:57 11:57 WBC 12.9 H (3.8-10.6) k/uL RBC 4.70 (3.80-5.40) m/uL Hgb 14.4 (11.4-16.0) gm/dL Hct 43.4 (34.0-46.0) % MCV 92.5 (80.0-100.0) fL MCH 30.6 (25.0-35.0) pg MCHC 33.1 (31.0-37.0) g/dL RDW 13.8 (11.5-15.5) % Plt Count 210 (150-450) k/uL MPV 8.4 Neutrophils % 36 % Lymphocytes % 53 % Monocytes % 5 % Eosinophils % 4 % Basophils % 1 % Neutrophils # 4.6 (1.3-7.7) k/uL Lymphocytes # 6.8 H (1.0-4.8) k/uL Monocytes # 0.6 (0-1.0) k/uL Eosinophils # 0.5 (0-0.7) k/uL Basophils # 0.1 (0-0.2) k/uL Manual Slide Review Performed RBC Morphology Normal PT 10.3 (9.0-12.0) sec INR 1.0 (<1.2) APTT 22.6 (22.0-30.0) sec Sodium (137-145) mmol/L Potassium (3.5-5.1) mmol/L Chloride (98-107) mmol/L Carbon Dioxide (22-30) mmol/L Anion Gap mmol/L BUN (7-17) mg/dL Creatinine (0.52-1.04) mg/dL Est GFR (CKD-EPI)AfAm (>60 ml/min/1.73 sqM) Est GFR (CKD-EPI)NonAf (>60 ml/min/1.73 sqM) Glucose (74-99) mg/dL POC Glucose (mg/dL) 103 H (75-99) mg/dL POC Glu Rubber Tester ID Miguel Guzman Calcium (8.4-10.2) mg/dL Total Bilirubin (0.2-1.3) mg/dL AST (14-36) U/L ALT (4-34) U/L Alkaline Phosphatase (38-126) U/L Troponin I (0.000-0.034) ng/mL Total Protein (6.3-8.2) g/dL Albumin (3.5-5.0) g/dL Urine Color Urine Appearance (Clear) Urine pH (5.0-8.0) Ur Specific [place] (1.001-1.035) Urine Protein (Negative) Urine Glucose (UA) (Negative) Urine Ketones (Negative) Urine Blood (Negative) Urine Nitrite (Negative) Urine Bilirubin (Negative) Urine Urobilinogen (<2.0) mg/dL Ur Leukocyte Esterase (Negative) Urine RBC (0-5) /hpf Urine WBC (0-5) /hpf Ur Squamous Epith Cells (0-4) /hpf Urine Bacteria (None) /hpf Urine Mucus (None) /hpf Urine Opiates Screen (NotDetected) Ur Oxycodone Screen (NotDetected) Urine Methadone Screen (NotDetected) Ur Propoxyphene Screen (NotDetected) Ur Barbiturates Screen (NotDetected) U Tricyclic Antidepress (NotDetected) Ur Phencyclidine Scrn (NotDetected) Ur Amphetamines Screen (NotDetected) U Methamphetamines Scrn (NotDetected) U Benzodiazepines Scrn (NotDetected) Urine Cocaine Screen (NotDetected) U Marijuana (THC) Screen (NotDetected) 05/04/21 05/04/21 05/04/21 Range/Units 11:57 11:57 11:57 WBC (3.8-10.6) k/uL RBC (3.80-5.40) m/uL Hgb (11.4-16.0) gm/dL Hct (34.0-46.0) % MCV (80.0-100.0) fL MCH (25.0-35.0) pg MCHC (31.0-37.0) g/dL RDW (11.5-15.5) % Plt Count (150-450) k/uL MPV Neutrophils % % Lymphocytes % % Monocytes % % Eosinophils % % Basophils % % Neutrophils # (1.3-7.7) k/uL Lymphocytes # (1.0-4.8) k/uL Monocytes # (0-1.0) k/uL Eosinophils # (0-0.7) k/uL Basophils # (0-0.2) k/uL Manual Slide Review RBC Morphology PT (9.0-12.0) sec INR (<1.2) APTT (22.0-30.0) sec Sodium 138 (137-145) mmol/L Potassium 4.0 (3.5-5.1) mmol/L Chloride 105 (98-107) mmol/L Carbon Dioxide 18 L (22-30) mmol/L Anion Gap 15 mmol/L BUN 17 (7-17) mg/dL Creatinine 0.84 (0.52-1.04) mg/dL Est GFR (CKD-EPI)AfAm 80 (>60 ml/min/1.73 sqM) Est GFR (CKD-EPI)NonAf 70 (>60 ml/min/1.73 sqM) Glucose 116 H (74-99) mg/dL POC Glucose (mg/dL) (75-99) mg/dL POC Glu Rubber Tester ID Calcium 9.9 (8.4-10.2) mg/dL Total Bilirubin 0.6 (0.2-1.3) mg/dL AST 36 (14-36) U/L ALT 19 (4-34) U/L Alkaline Phosphatase 103 (38-126) U/L Troponin I <0.012 (0.000-0.034) ng/mL Total Protein 7.7 (6.3-8.2) g/dL Albumin 4.3 (3.5-5.0) g/dL Urine Color Yellow Urine Appearance Cloudy H (Clear) Urine pH 6.5 (5.0-8.0) Ur Specific [place] 1.019 (1.001-1.035) Urine Protein Trace H (Negative) Urine Glucose (UA) Negative (Negative) Urine Ketones Negative (Negative) Urine Blood Trace H (Negative) Urine Nitrite Negative (Negative) Urine Bilirubin Negative (Negative) Urine Urobilinogen <2.0 (<2.0) mg/dL Ur Leukocyte Esterase Large H (Negative) Urine RBC 7 H (0-5) /hpf Urine WBC 23 H (0-5) /hpf Ur Squamous Epith Cells 1 (0-4) /hpf Urine Bacteria Rare H (None) /hpf Urine Mucus Rare H (None) /hpf Urine Opiates Screen Not Detected (NotDetected) Ur Oxycodone Screen Not Detected (NotDetected) Urine Methadone Screen Not Detected (NotDetected) Ur Propoxyphene Screen Not Detected (NotDetected) Ur Barbiturates Screen Not Detected (NotDetected) U Tricyclic Antidepress Not Detected (NotDetected) Ur Phencyclidine Scrn Not Detected (NotDetected) Ur Amphetamines Screen Not Detected (NotDetected) U Methamphetamines Scrn Not Detected (NotDetected) U Benzodiazepines Scrn Not Detected (NotDetected) Urine Cocaine Screen Not Detected (NotDetected) U Marijuana (THC) Screen Not Detected (NotDetected) Critical Care Time Critical Care Time: Yes Total Critical Care Time: 35 Disposition Clinical Impression: Frontal mass of brain, Vasogenic brain edema Disposition: OTHER INSTITUTION NOT DEFINED Referrals: Josh Alfred MD [Primary Care Provider] - 1-2 days - Out of Hospital Transfer - Req. Specs Out of Hospital Transfer - Requested Specifics: Other Emergency Center ([facility])
[2021-05-04 12:07] LABS: Basophils # (A) 0.1 k/uL (0-0.2); Basophils % (A) 1 %; Eosinophils # (A) 0.5 k/uL (0-0.7); Eosinophils % (A) 4 %; HCT 43.4 % (34.0-46.0); HGB 14.4 gm/dL (11.4-16.0); Lymphocytes # (A) 6.8 k/uL (1.0-4.8); Lymphocytes % (A) 53 %; MCH 30.6 pg (25.0-35.0); MCHC 33.1 g/dL (31.0-37.0); MCV 92.5 fL (80.0-100.0); Mean Platelet Volume 8.4; Monocytes # (A) 0.6 k/uL (0-1.0); Monocytes % (A) 5 %; Neutrophils # (A) 4.6 k/uL (1.3-7.7); Neutrophils % (A) 36 %; Platelet Count 210 k/uL (150-450); RDW 13.8 % (11.5-15.5); WBC 12.9 k/uL (3.8-10.6)
[2021-05-04 12:13] LABS: Albumin 4.3 g/dL (3.5-5.0); Calcium 9.9 mg/dL (8.4-10.2); Total Bilirubin 0.6 mg/dL (0.2-1.3); Total Protein 7.7 g/dL (6.3-8.2)
[2021-05-04 12:23] LABS: Partial Thromboplastin Time 22.6 sec (22.0-30.0); Prothrombin Time 10.3 sec (9.0-12.0)
--- NOTE | 2021-05-04 12:31 | XR ---
EXAMINATION TYPE: XR chest 2V DATE OF EXAM: 05/04/2021 COMPARISON: Chest x-ray 08/18/2019 HISTORY: Altered mental status TECHNIQUE: Frontal and lateral views of the chest are obtained. FINDINGS: Bilateral airspace disease is present diffusely. Interstitium is increased. No evident pne umothorax or pleural effusion. Lung findings are low. Cardiac mediastinal silhouette shows a prominen t heart size possibly exaggerated by rotation. There is overlying catheter, possibly jugular central venous catheter with the distal tip overlying the cavoatrial junction level. There are overlying fozia facts. There is dense. Rupture noted in the shoulders. IMPRESSION: Correlate for pulmonary edema, volume overload, congestive heart failure
--- NOTE | 2021-05-04 12:40 | CT ---
EXAMINATION TYPE: CT brain wo con DATE OF EXAM: 05/04/2021 COMPARISON: MRI 05/11/2012 HISTORY: Possible seizure. History of tumor. CT DLP: 1217.4 mGycm Automated exposure control for dose reduction was used. Helical imaging through the brain. FINDINGS: There is a mass in the right frontal region measuring approximately 4.2 x 5.4 x 2.2 cm, there is loca l mass effect in the right frontal lobe, some slight anterior midline shift of approximately 6 to 7 m m with some right frontal vasogenic edema, mass effect on the frontal horn of right lateral ventricle . No evident hemorrhage. There is cerebral vascular calcifications. Some mild cortical atrophy is pre sent. Calvarium is showing postoperative change to the left temporal bone, correlate with appropriate surgical history. Calcification present within the basal ganglia region noted. IMPRESSION: MASS IN THE RIGHT FRONTAL LOBE DESCRIBED WITH SOME MIDLINE SHIFT, MASS EFFECT, VASOGENIC EDEMA.
[2021-05-04 13:25] VITALS: RESP 18
[2021-05-04] MEDS ORDERED: DEXAMETHASONE SOD PHOSPHATE 10 MG/ML 1 ML VIAL IVP STA (14:20)
[2021-05-04] MEDS ORDERED: levETIRAcetam IV 1,000 MG in SALINE 1 100ML.BAG IVPB STA (14:37)
[2021-05-04 14:38] VITALS: BP 170/82; PULSE 74
[2021-05-04 15:20] LABS: Appearance,Urine Cloudy (Clear); Bacteria,Urine Rare /hpf; Bilirubin,Urine Negative (Negative); Blood,Urine Trace (Negative); Color,Urine Yellow; Glucose,Urine (UA) Negative (Negative); Ketones,Urine Negative (Negative); Leukocyte Esterase,Urine Large (Negative); Mucus,Urine Rare /hpf; Nitrite,Urine Negative (Negative); PH, Urine 6.5 (5.0-8.0); Protein,Urine Trace (Negative); RBC,Urine 7 /hpf (0-5); Specific Gravity,Urine 1.019 (1.001-1.035); Squamous Epithelial Cell,Urine 1 /hpf (0-4); Urobilinogen,Urine <2.0 mg/dL (<2.0); WBC,Urine 23 /hpf (0-5)
[2021-05-04 15:26] LABS: Amphetamine Screen,Urine Not Detected (NotDetected); Barbiturate Screen,Urine Not Detected (NotDetected); Benzodiazepines Screen,Urine Not Detected (NotDetected); Cocaine Screen,Urine Not Detected (NotDetected); Methadone Screen, Urine Not Detected (NotDetected); Opiate Screen,Urine Not Detected (NotDetected); Oxycodone Screen, Urine Not Detected (NotDetected); Phencyclidine Screen,Urine Not Detected (NotDetected); Tricyclic Antidepressant,Urine Not Detected (NotDetected); Urn Cannabinoid Scrn Not Detected (NotDetected)
== END 2021-05-04 15:22 | disposition other institution (70) ==
LOC: EC 11:38
DX: G93.6 Cerebral edema (principal); G93.89 Other specified disorders of brain; I10 Essential (primary) hypertension; E78.5 Hyperlipidemia, unspecified; E07.9 Disorder of thyroid, unspecified; Z79.01 Long term (current) use of anticoagulants; Z90.710 Acquired absence of both cervix and uterus; Z98.51 Tubal ligation status; Z79.899 Other long term (current) drug therapy
CPT/HCPCS: 99291; 96374; 96375; 96361; 36415; 93005; 80053; 84484; 85025; 85610; 85730; 81001; 80306; 87086; 71046; 70450; J1100; J1953

== ENCOUNTER 2022-04-30 07:47 | Day surgery (SDC) | payer MEDICARE ==
[2022-04-26 10:16] VITALS: BMI 32.3
[~2022-04-30 07:47] MED LIST: LACTATED RINGERS 1,000 ML IV SCH; LIDOCAINE 1% (10MG/ML) FOR IV START INTRADERMA PRN
[2022-04-30 08:42] VITALS: RESP 16; TEMP 97.4
[2022-04-30] MEDS ORDERED: LIDOCAINE 2% INJ 20 MG/ML (2 ML VIAL) ONE (09:42)
[2022-04-30] MEDS ORDERED: PROPOFOL 10 MG/ML 20 ML VIAL IV ONE (09:42)
--- NOTE | 2022-04-30 10:01 | P.PCN ---
Date of Procedure: 04/30/22 Procedure(s) Performed: BRIEF HISTORY: Patient is a 72-year-old pleasant white female scheduled for an elective colonoscopy as a part of screening for colorectal neoplasia. PROCEDURE PERFORMED: Colonoscopy. PREOPERATIVE DIAGNOSIS: Screening for colon cancer. IV sedation per Anesthesia. PROCEDURE: After informed consent was obtained, the patient, was brought into the endoscopy unit. IV sedation was administered by Anesthesia under continuous monitoring. Digital rectal examination was normal. Initially the Olympus CF-160 flexible video colonoscope was then inserted in the rectum, gradually advanced into the cecum without any difficulty. Careful examination was performed as the scope was gradually being withdrawn. Ileocecal valve and the appendiceal orifice were visualized and appeared normal. Prep was excellent. Mucosa of the cecum, ascending colon, transverse colon, descending colon, sigmoid colon, and rectum appeared normal. Scattered sigmoid diverticulosis. Retroflexion was performed in the rectum and no lesions were seen. The patient tolerated the procedure well. IMPRESSION: Normal-appearing colon from rectum to cecum no evidence of colorectal neoplasia. Scattered sigmoid diverticulosis.. RECOMMENDATIONS: Findings of this examination were discussed with the patient as well as a family. She was advised to be a high-fiber diet and take fiber supplements a regular basis and have a repeat screening colonoscopy at age 79..
[2022-04-30 10:20] VITALS: BP 159/79; PULSE 53
== END 2022-04-30 10:50 | disposition home or self-care (01) ==
LOC: ORWHC2ENDO 07:47
PROVIDERS: ATTEND Internal Medicine Gastroenterology
DX: Z12.11 Encounter for screening for malignant neoplasm of colon (principal); K57.30 Diverticulosis of large intestine without perforation or abscess without bleeding; I10 Essential (primary) hypertension; E78.5 Hyperlipidemia, unspecified; E07.9 Disorder of thyroid, unspecified; H91.90 Unspecified hearing loss, unspecified ear; G40.909 Epilepsy, unspecified, not intractable, without status epilepticus; F41.9 Anxiety disorder, unspecified; Z79.890 Hormone replacement therapy; Z79.899 Other long term (current) drug therapy
CPT/HCPCS: J2704; J2001; G0121